=== PATIENT | male | born 1995 | race Two or more races ===

== ENCOUNTER 2024-12-01 03:59 | Emergency (ER) | payer SELFPAY ==
[2024-12-01 04:00] VITALS: BMI 26.5
--- NOTE | 2024-12-01 04:02 | EKG_ITS ---
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
[2024-12-01 04:16] VITALS: BP 123/82; PULSE 55; RESP 18; TEMP 36.6; O2SAT 100
--- NOTE | 2024-12-01 04:38 | XR_ITS ---
EXAMINATION: PA chest single view TECHNIQUE: Upright PA chest single view Date and time: December 01, 2024, 0443 hours, comparison October 03, 2012 INDICATIONS: Onset shortness of breath chest pain beginning 7 hours ago FINDINGS: Normal heart size. Lungs are clear. The osseous structures are intact. IMPRESSION: No active disease
--- NOTE | 2024-12-01 04:39 | PD.EDRME ---
Rapid Medical Screening Exam RME Arrival date/time: 12/01/24 03:59 This is a case of 29-year-old male with no medical history came in in the emergency room due to chest pain shortness of breath and palpitation persistence of the symptoms this patient decided to start consulted in the emergency room Chief Complaint: Chest Pain Time Seen by Provider: 12/01/24 04:38 Vital signs: Vital Signs Temperature 98 F 12/01/24 04:16 Pulse Rate 55 L 12/01/24 04:16 Respiratory Rate 18 12/01/24 04:16 Blood Pressure 123/82 12/01/24 04:16 Pulse Oximetry (%) 100 12/01/24 04:16 Oxygen Delivery Method Room Air 12/01/24 04:16
[2024-12-01 05:13] LABS: Basophils # (Auto) 0.0 Thou/mm3 (0.0-0.2); Basophils % (Auto) 0 % (0-2.5); Eosinophils # (Auto) 0.1 Thou/mm3 (0.0-0.5); Eosinophils % (Auto) 2 % (0-10); Hematocrit 45.6 % (41.0-53.0); Hemoglobin 15.9 g/dL (13.5-16.0); Immature Granulocytes Auto 0.02 Thou/mm3 (0.00-0.00); Lymphocytes # (Auto) 3.0 Thou/mm3 (1.0-4.8); Lymphocytes % (Auto) 37 % (10-50); Mean Corpuscular HGB Conc 34.9 g/dl (31.0-37.0); Mean Corpuscular Hemoglobin 28.6 pg (25.0-35.0); Mean Corpuscular Volume 82 fL (80-100); Monocytes # (Auto) 0.7 Thou/mm3 (0.0-0.8); Monocytes % (Auto) 8 % (0-12); Neutrophils # (Auto) 4.3 Thou/mm3 (1.8-7.7); Neutrophils % (Auto) 53 % (37-80); Nucleated Red Blood Cell # 0.00 Thou/mm3 (0.00-0.00); Nucleated Red Blood Cell % 0 /100 WBC (0); Platelet Count 200 Thou/mm3 (140-440); RDW Standard Deviation 35.8 fL (35.1-43.9); Red Blood Count 5.56 Miln/mm3 (4.50-5.90); White Blood Count 8.1 Thou/mm3 (3.8-10.6)
[2024-12-01 05:35] LABS: Alanine Aminotransferase 12 U/L (10-49); Albumin, Serum 4.6 gm/dL (3.5-5.0); Albumin/Globulin Ratio 1.7 (1.2-2.2); Alkaline Phosphatase 81 U/L (46-116); Anion Gap 9 (7-16); Aspartate Amino Transferase 18 U/L (0-34); BUN/Creatinine Ratio 12 Ratio (12-20); Bilirubin,Total 0.3 mg/dL (0.3-1.2); Blood Urea Nitrogen 13 mg/dL (9-23); Calcium 9.5 mg/dL (8.3-10.6); Calcium (Corrected) 9.5 mg/dL (8.5-10.1); Carbon Dioxide 28.2 mMol/L (20.0-31.0); Chloride 104 mMol/L (98-107); Creatinine (Component) 1.1 mg/dL (0.6-1.3); Estimated Creatinine Clearance 100.5 mL/min (>60); Globulin 2.7 gm/dL (2.3-3.5); Glucose 100 mg/dL (74-106); Osmolality,Calculated 281 (275-295); Potassium 4.0 mMol/L (3.4-5.1); Sodium 141 mMol/L (136-145); Thyroid Stimulating Hormone 1.97 uIU/mL (0.55-4.78); Total Protein 7.3 gm/dL (5.7-8.2); Troponin I < 0.020 ng/mL (0.0-0.045); eGFR > 60 See Note
[2024-12-01 05:48] LABS: Collection Type, Urine Clean Catch; Squamous Epithelial Cell,Urine 0 /hpf (0-5)
[2024-12-01 05:56] LABS: D-Dimer < 250 ng/mL (<600)
[2024-12-01 06:03] LABS: B-Type Natriuretic Peptide < 20 pg/mL (0-100)
[2024-12-01 06:06] LABS: Bilirubin,Urine Negative (Negative); Blood,Urine Negative (Negative); Clarity,Urine Clear (Clear/Hazy); Color,Urine Lt-Yellow (Lt Yel-Yel); Glucose, Urine Negative (Negative); Ketones,Urine Negative (Negative); Leukocyte Esterase,Urine Negative (Negative); Nitrite,Urine Negative (Negative); PH,Urine 6.0 (5.0-7.0); Protein,Urine Negative (Neg - Trace); RBC,Urine 2 /hpf (0-3); Specific Gravity,Urine 1.017 (1.001-1.035); Urobilinogen,Urine Negative mg/dL (0.0-1.0); WBC,Urine 3 /hpf (0-5)
[2024-12-01 06:28] VITALS: BP 117/80; PULSE 61; RESP 19; TEMP 36.8; O2SAT 99
[2024-12-01] MEDS: KETOROLAC INJ 30 MG/ML VIAL IM (09:02)
--- NOTE | 2024-12-01 09:05 | EDNOTE_ITS ---
ED Chest Pain RME/HPI General Chief Complaint: Chest Pain Stated Complaint: CHEST PAIN SINCE 2199 WITH SOB Time Seen by Provider: 12/01/24 04:38 Arrival date/time: 12/01/24 03:59 RME / HPI RME / HPI narrative: This is a case of 29-year-old male with no medical history came in in the emergency room due to right sided chest pain after seeing a concert last night. Patient states it is worse when he leans back and even spasms in his upper back as well. Denies SOB, N/V, diaphoresis, trauma, fever, cough, dysuria, hematuria. Related Data Home Medications ?Medication ?Instructions ?Recorded ?Confirmed No Known Home Medications 02/08/1901/21 Allergies Allergy/AdvReac Type Severity Reaction Status Date / Time No Known Allergies Allergy Verified 12/01/24 04:00 ED Exam Narrative Physical exam: Constitutional: Patient alert and oriented. Well appearing. No acute distress. Not toxic appearing. Head: Normocephalic, atraumatic. Eyes: Periorbital regions bilaterally normal to inspection. Conjunctiva clear bilaterally. Sclera anicteric bilaterally. Pupils equal, round, reactive to light bilaterally. Extraocular movements intact bilaterally. Mouth/Throat: Mucous membranes moist. No stridor or muffled voice. No trismus. Handling secretions without difficulty. Airway widely patent. Neck: Supple. Trachea midline. No JVD. No nuchal rigidity. Normal range of motion. Respiratory: Normal effort. No accessory muscle use or respiratory distress. Lungs clear to auscultation bilaterally without rhonchi, wheezes, or crackles. Cardiovascular: RRR. Normal S1/S2. No murmurs or rubs. Radial pulses intact bilaterally. Abdomen: Soft. Non-distended. Non-tender throughout. No pulsatile mass. No guarding or rebound. Negative Silverman?s sign. Negative McBurney?s point tenderness. Negative Rovsing?s. Back: No midline tenderness or step-offs. No CVA tenderness to palpation bilaterally. Upper Extremities: No gross deformities. Lower Extremities: No gross deformities. No edema or calf tenderness. Neuro: Speech normal. No gross motor or sensory deficits to upper or lower extremities bilaterally. GCS 15. CN II?XII grossly intact. Skin: Warm, dry, normal color. Psych: Normal affect. Cooperative. Normal insight. Course Quality Measures none Orders Category Date Time Status EKG (ED ONLY) *Do not use* NOW Care 12/01/24 04:02 Completed EKG (ED Only) Stat Exams 12/01/24 04:02 Draft XR chest 1V portable Stat Exams 12/01/24 04:38 Completed BNP [B-Type Natriuretic Peptide] Stat Lab 12/01/24 05:05 Completed CBC Stat Lab 12/01/24 05:05 Completed Comprehensive Metabolic Panel Stat Lab 12/01/24 05:05 Completed D-Dimer Stat Lab 12/01/24 05:05 Completed Lipase Stat Lab 12/01/24 05:05 Completed TSH [Thyroid Stimulating Hormone] Stat Lab 12/01/24 05:05 Completed Troponin I Stat Lab 12/01/24 05:05 Completed Urinalysis Stat Lab 12/01/24 05:29 Completed Ketorolac Inj [Toradol Inj] Med 12/01/24 08:56 Discontinued 30 mg IM X1 ONE Reevaluation(s) Reevaluation #1: At the time of reassessment, the patient remains alert and oriented ?3 with GCS 15. Vitals are normal, pain is controlled, and the patient is tolerating oral intake without nausea or vomiting. The patient is agreeable to discharge and verbalizes understanding of the diagnosis, studies, treatment plan, medications (including side effects/precautions), and strict ER return precautions as discussed in the ED. All concerns were addressed, and the patient is comfortable with the plan. Vital Signs Vital signs: Vital Signs Temperature 98 F 12/01/24 04:16 Pulse Rate 55 L 12/01/24 04:16 Respiratory Rate 18 12/01/24 04:16 Blood Pressure 123/82 12/01/24 04:16 Pulse Oximetry (%) 100 12/01/24 04:16 Oxygen Delivery Method Room Air 12/01/24 04:16 Chest Pain MDM Narrative MDM Narrative:: MDM The patient presents with chest pain. Differential diagnosis includes musculoskeletal chest pain, costochondritis, and thoracic radiculopathy. Less likely etiologies include: PE: Wells low risk, PERC negative. ACS: HEART Score low risk, suggesting low probability of major adverse cardiac event in the next 6 weeks. Aortic Dissection: Unlikely given palpable pulses, warm extremities bilaterally, and no radiation of pain. Tamponade: Unlikely given absence of hypotension, muffled heart sounds, JVD, friction rub, narrow pulse pressure ?30, low-voltage EKG, or enlarged cardiac silhouette. Endocarditis: Unlikely as no Hoang criteria present (Huber spots, splinter hemorrhages, Osler nodes). CHF: Unlikely given no JVD, peripheral edema, or orthopnea. The patient is clinically well-appearing and stable. Evaluation today does not suggest cardiac ischemia, pulmonary embolism, aortic dissection, or other life- threatening etiology. These diagnoses were considered and excluded clinically and with appropriate studies. Nonetheless, it is understood by both patient and provider that no evaluation can entirely exclude such conditions. Admission was considered but is not indicated based on today?s evaluation and low-risk stratification. 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 Strict ER return precautions advised for any continued, worsening, or new symptoms or any concerns at all. Patient data External records reviewed:: None Clinical information provided by:: patient Social determinants that could affect healthcare access:: none Patient has the following chronic illnesses:: None How is presenting disease/condition affected by chronic disease/condition?: no chronic disease Evaluation data The following diagnostics were reviewed and interpreted by me:: lab results, radiology exam(s) and EKG tracing(s) Lab and/or radiology exams considered but not ordered:: EKG without acute ischemia or arrhythmia. No ST elevation or T wave inversions. No severe metabolic or electrolyte abnormality. Interpretation Summary: As noted Medications / Prescriptions Medications or Prescriptions considered but not ordered:: As noted Medication administrations:: Medication Administration History Discontinued Medications Ketorolac Tromethamine (Ketorolac Inj 30 Mg/Ml Vial) 30 mg IM X1 ONE Stop: 12/01/24 08:57 Last Admin: 12/01/24 09:02 Dose: 30 mg Documented By: LP As noted Consultations Consultation(s) initiated? (list below): No Diagnosis Chest Pain Differential Diagnosis: costochondritis and other Most likely diagnosis given after review of the tests above:: As noted Admission Indicated Admission indicated?: not indicated Admission Request Was there a request for admission?: No Disposition Plan Disposition Plan: Discharge Discharge Attestation Discharge Attestation: The patient and all family members were given an opportunity to ask questions and understood the discharge instructions. Discharge instructions specifically effects, indications for sooner follow up or return to the emergency department, and the expected course of current diagnosis. Patient condition: Stable Discharge Plan Plan Patient Disposition: HOME (Self Care) Patient condition on transfer: Stable Prescriptions/Referrals Prescriptions/Med Rec: No Action No Known Home Medications Referrals: No Primary/Family,Physician [Primary Care Provider] - In 1 week Problem List Clinical Impression: Chest pain Patient/Caregiver Discharge Instructions Education Materials: ED Chest Pain, Uncertain Cause Additional Instructions: Follow up with your primary medical doctor within 24 hours. Return to the Emergency Room immediately for any new, worsening, continuing symptoms or any concerns at all. Return to the Emergency Room within 24 hours if you are unable to follow up with your primary medical doctor within 24 hours. Print Language: Yoruba Stand Alone Forms: Lenora Award Info., Patient Portal Info Letter PA/JEAN MARIE Supervising Physician PA/JEAN MARIE Supervising Physician: Dr. Sahni
[2024-12-01 09:28] LABS: Lipase 43 U/L (12-53)
== END 2024-12-01 10:06 | disposition home or self-care (01) ==
PROVIDERS: Nurse Practitioner Family; Physician Assistant; Emergency Provider Family Medicine
DX: R07.9 Chest pain, unspecified (principal)
CPT/HCPCS: 36415; 71045; 80053; 81001; 83690; 83880; 84443; 84484; 85025; 85379; 93005; 96372; 99283; J1885